=== PATIENT | male | born 1945 | race Caucasian/White ===

== ENCOUNTER → 2019-04-04 | Outpatient (CLI) | payer MEDICARE, OTHER ==
[~2019-04-04] MED LIST: ASPIRIN325 MG PO; ATENOLOL50 MG PO; DIOVAN HCT 3201 EACH PO
--- NOTE | 2019-04-04 20:52 | Diagnostic Imaging Report ---
MRI SPINE LUMBAR WO HISTORY: Low back, left leg pain COMPARISON: None. TECHNIQUE: Sagittal T1, sagittal T2, sagittal STIR, axial T2, coronal T2, and axial proton density weighted images of the lumbar spine were obtained without contrast. DISCUSSION: Number of non-rib bearing lumbar vertebral bodies: 5. Alignment: Slight straightening lordosis. Thoracolumbar levoscoliosis is centered at L2-L3. Vertebrae: No definite evidence for vertebral acute fractures, or neoplasm. Approximately 1.3 cm nodular T2 hyperintense lesion in the medial right iliac bone is indeterminate. Conus medullaris: Normal, ends at L1. Cauda equina: There is cauda equina crowding at L3-L4. Otherwise, no masses or arachnoiditis. Posterior paraspinal muscles: Well preserved. Mild right paraspinal muscle edema at L2-L3. Soft tissues: A inferior right renal cyst measures up to 13 cm in craniocaudal dimension. A few additional smaller T2 hyperintense cysts are seen in the upper right kidney. Moderate multilevel disc degeneration is most prominent at L5-S1. Nonspecific mild multilevel inflammatory endplate changes are most prominent on the right at L2-L3. Associated multilevel small Schmorl's nodes are present. T12-L1: Disc bulge without significant canal or foraminal stenosis. L1-L2: Disc bulge without significant canal or foraminal stenosis. L2-L3: Mild canal stenosis due to disc bulge and ligamentum flavum thickening. Both lateral recesses are slightly effaced, right greater than left. Mild right foraminal stenosis due to disc bulge and facet arthrosis. No significant left foraminal stenosis. L3-L4: Severe canal stenosis due to disc bulge and ligamentum flavum thickening. Both lateral recesses are effaced. Moderate right and mild left foraminal stenoses due to disc bulge and facet arthrosis. L4-L5: Moderate canal stenosis due to disc bulge and ligamentum flavum thickening. Both lateral recesses are effaced. Mild to moderate right and severe left foraminal stenoses due to disc bulge and facet arthrosis. L5-S1: Grade 1 anterolisthesis of L5 on S1 with chronic bilateral L5 pars defects. Mild canal stenosis due to uncovered disc bulge and ligamentum flavum thickening. Moderate to severe right and severe left foraminal stenoses due to uncovered disc bulge and facet arthrosis. IMPRESSION: 1. Moderate multilevel disc degeneration, most prominent at L5-S1, with thoracolumbar levoscoliosis centered at L2-L3. Nonspecific mild multilevel inflammatory endplate changes, most prominent on the right at L2-L3. 2. Grade 1 anterolisthesis of L5 on S1 with chronic bilateral L5 pars defects. 3. Multilevel degenerative canal stenoses - severe at L4-L5 (with cauda equina crowding) and moderate at L4-L5. 4. Multilevel degenerative foraminal stenoses - moderate on the right at L3-L4; severe on the left at L4-L5; moderate to severe right and severe left at L5-S1. 5. Indeterminate 1.3 cm T2 hyperintense lesion in the medial right iliac bone. 6. Multiple right renal cysts, measuring up to 13 cm in size. Signed by: Dr. Willy Pisano M.D. on 04/04/2019 8:49 PM
== END ==
LOC: MRI 12:38
PROVIDERS: ATTEND Internal Medicine
DX: M54.16 Radiculopathy, lumbar region (principal)
CPT/HCPCS: 72148

== ENCOUNTER 2019-04-29 12:49 | Outpatient (RCR) | payer MEDICARE, OTHER | END 2019-05-11 | LOC: PT 12:49 | PROVIDERS: ATTEND Neurological Surgery | DX: M51.16 Intervertebral disc disorders with radiculopathy, lumbar region (principal) ==

== ENCOUNTER 2020-09-03 08:18 | Inpatient (IN) | payer MEDICARE, OTHER ==
[~2020-09-03] VITALS: Ht 177.8 cm; Wt 90.7 kg
[2020-09-03] VITALS (8 sets, daily range): BP systolic 152–191; BP diastolic 89–92
--- NOTE | 2020-09-03 08:41 | Emergency Department Note ---
History of Present Illnes History of Present Illness Chief Complaint: Chest Pain History of Present Illness This is a 75 year old male arrived to the ED after he was called by [employer] heart monitor company for irregular rhythm. Patient denies any complaints. . Chief Complaint Comment PATIENT IN FROM HOME; STATES HAS BEEN WEARING A HEART MONITOR AFTER AN ABNORMAL EKG AND THE MONITORING COMPLNY CALLED AND TOLD HIM TO COME TO THE ER BECAUSE HE HAD A "CARDIAC EVENT" AT 0715. PATIENT ALERT AND ORIENTED, RESP EVEN AND NONLABORED, PATIENT DENIES PAIN, SHORTNESS OF BREATH, OR ANY OTHER COMPLAINTS Historian: Patient, Family Member Arrival Mode: Car Onset (how long ago): day(s) Severity: mild Timing of current episode: intermittent Progression: unchanged Chronicity: new Relieving factors: none Exacerbating factors: none Past Medical/Family History Physician Review I have reviewed the patient's past medical and family history. Any updates have been documented here. Past Medical History Recent Fever: No Clinical Suspicion of Infectio: No New/Unexplained Change in Ment: No Past Medical History: Hypertension, Cancer Other Medical History: SKIN CANCER TO FACE-REMOVED 2017 PROSTATE CANCER - REMISSION Past Surgical History: Cholecysctectomy Other Last Tetanus: NO Review of Systems Review of Systems Constitutional: Reports no symptoms EENTM: Reports no symptoms Cardiovascular: Reports as per HPI Respiratory: Reports no symptoms Gastrointestinal: Reports no symptoms Genitourinary: Reports no symptoms Musculoskeletal: Reports no symptoms Integumentary: Reports no symptoms Neurological: Reports no symptoms Psychological: Reports no symptoms Endocrine: Reports no symptoms Hematological/Lymphatic: Reports no symptoms Physical Exam Related Data Allergies: Coded Allergies: tetanus immune globulin (Verified Allergy, Unknown, 09/03/20) Triage Vital Signs Vital Signs Date Time Temp Pulse Resp B/P (MAP) Pulse Ox O2 Delivery O2 Flow Rate FiO2 09/03/20 08:21 97.9 92 18 205/115 98 Room Air Vital signs reviewed: Yes Physical Exam CONSTITUTIONAL Constitutional: Present well-developed, Present well-nourished HENT HENT: Present normocephalic, Present atraumatic, Present oropharynx clear/mo ist, Present nose normal HENT L/R: Present left ext ear normal, Present right ext ear normal EYES Eyes: Reports PERRL, Reports conjunctivae normal NECK Neck: Present ROM normal PULMONARY Pulmonary: Present effort normal, Present breath sounds normal CARDIOVASCULAR Cardiovascular: Present regular rhythm, Present heart sounds normal, Present capillary refill normal, Present normal rate GASTROINTESTINAL Abdominal: Present soft, Present nontender, Present bowel sounds normal GENITOURINARY Genitourinary: Present exam deferred SKIN Skin: Present warm, Present dry MUSCULOSKELETAL Musculoskeletal: Present ROM normal NEUROLOGICAL Neurological: Present alert, Present oriented x 3, Present no gross motor or sensory deficits PSYCHOLOGICAL Psychological: Present mood/affect normal, Present judgement normal Results Laboratory Lab results reviewed: Yes Procedures 12 Lead ECG Interpretation ECG Interpretation : ECG: ECG 1 Is Analyst: Interpreted by ED physician Prior ECG tracings: reviewed Rate: normal QRS axis: left Conduction: left bundle branch block ST segments normal: Yes T waves normal: Yes Clinical Impression: abnormal ECG Assessment & Plan Medical Decision Making MDM 75-year-old male arrives to the ED after he received a call of irregular rhythms in his heart monitor. Case discussed Dr. Pro who recommended hospital admission to telemetry to unit for pacemaker placement. Patient placed on pacer pads and admitted. Assessment & Plan Final Impression: (1) Dysrhythmia Depart Disposition: ADMITTED Last Vital Signs Date Time Temp Pulse Resp B/P (MAP) Pulse Ox O2 Delivery O2 Flow Rate FiO2 09/03/20 08:21 97.9 92 18 205/115 98 Room Air Home Meds Reported Medications Aspirin (ASPIRIN) 325 Mg Tablet, 325 MG PO DAILY, TAB 04/20/15 Valsartan/Hydrochlorothiazide (DIOVAN HCT 320-25 MG TABLET) 1 Each Tablet, 1 TAB PO DAILY 04/20/15 Atenolol (ATENOLOL) 50 Mg Tablet, 50 MG PO DAILY 04/20/15 RICARDO NEVAREZ DO Sep 03, 2020 08:41
[2020-09-03 08:44] LABS: BASOPHILS % 0.6 % (0.0-1.0); EOSINOPHILS # (AUTO) 0.2 (0.0-0.4); EOSINOPHILS % 2.6 % (0.0-6.0); HEMATOCRIT 52.6 % (38.2-49.6); HEMOGLOBIN 17.1 g/dL (14.0-18.0); LYMPHOCYTES # (AUTO) 0.7 (1.0-3.2); LYMPHOCYTES % 11.6 % (18.0-39.1); MEAN CORPUSCULAR HGB CONC 32.5 g/dL (31-35); MEAN CORPUSCULAR VOLUME 95.3 fL (81-99); MONOCYTES # (AUTO) 0.7 (0.2-0.8); MONOCYTES % 11.8 % (4.4-11.3); NEUTROPHILS # (AUTO) 4.5 (2.1-6.9); NEUTROPHILS % 73.1 % (38.7-80.0); PLATELET COUNT 254 x10e3/uL (140-360); RED BLOOD COUNT 5.52 x10e6/uL (4.3-5.7); RED CELL DISTRIBUTION WIDTH 13.7 % (11.7-14.4)
[2020-09-03 09:07] LABS: ALBUMIN/GLOBULIN RATIO 1.1 (0.8-2.0); CALCIUM 9.3 mg/dL (8.4-10.2); CREATININE, SERUM 1.48 mg/dL (0.72-1.25)
--- NOTE | 2020-09-03 09:12 | NUR ---
Pts spouse reports that pt snores extremely loud and stops breathing in his sleep everynight. Pt report called to [facility] on Med-Surg 2.
[2020-09-03 09:13] LABS: CREATINE KINASE MB 3.6 ng/mL (0-5.0)
--- NOTE | 2020-09-03 09:38 | NUR ---
Called Med-surg 2 and spoke to Christine to notify primary RN that pt needs to remain NPO d/t cardiac cath that will occur later today.
--- NOTE | 2020-09-03 09:38 | Diagnostic Imaging Report ---
X-ray chest AP History: Irregular rhythm Comparison: None Findings: Central airways unremarkable. Heart size normal. Aorta unremarkable. Other mediastinal contours unremarkable to the extent seen. No pleural effusion. No pneumothorax. No definite focal lung disease or lung nodules. Skeletal structures are remarkable for degenerative changes. Upper abdomen unremarkable. Extrathoracic soft tissues unremarkable. Impression: No acute cardiopulmonary disease. Signed by: Fermín Jensen MD on 09/03/2020 9:35 AM
--- NOTE | 2020-09-03 09:40 | NUR ---
patient arrived to unit via stretcher. denies concerns. no pain. telemetry in place. wctm.
[2020-09-03] MEDS ORDERED: NON-FORMULARY MEDICATION (Valsartan/Hydrochlorothiazide (Diovan Hct 320-25 Mg Tablet) 1 TA PO SCH (10:15)
[2020-09-03] MEDS: ASPIRIN 325 MG TAB PO SCH (10:45)
[2020-09-03] MEDS: HYDROCHLOROTHIAZIDE 25 MG TAB PO SCH (11:00)
[2020-09-03] MEDS: VALSARTAN 160 MG TAB PO SCH (11:00)
--- NOTE | 2020-09-03 11:00 | History and Physical ---
PRIMARY CARE PHYSICIAN: Dr. Hallie Hanson. GLAZE MAKER: Dr. Palacios CHIEF COMPLAINT: Abnormal event monitor with cardiac arrhythmia. HISTORY OF PRESENT ILLNESS: The patient is a 75-year-old male with hypertension. Apparently, he has some abnormal EKG previously and he saw Dr. Pro and event monitor was placed, monitoring for the past 10 days per patient and this morning, he was told by the company that monitoring him that he has some sort of cardiac arrhythmia event that he need to go to the emergency room. The patient subsequently went to emergency room. He denied of any significant symptoms. No chest pain. No shortness of breath. The patient now on telemetry floor. I could not find the patient's EKG in the chart. The patient is on monitor now. The EKG back in April showed possible atrial abnormality. There is no new EKG at this time. The patient is stable and lying in bed. He has a telemetry on. Laboratory workup in the emergency room otherwise unremarkable other than his creatinine was 1.48. Potassium was 4. The patient's chest x-ray was unremarkable. The patient is stable at this time. PAST MEDICAL HISTORY: 1. Hypertension. 2. History of remission prostate cancer. 3. Skin cancer, removed. PAST SURGICAL HISTORY: Cholecystectomy. SOCIAL HISTORY: The patient does not smoke or use alcohol. No regular drugs. ALLERGIES: TETANUS AND IMMUNE GLOBULIN. HOME MEDICATIONS: 1. Aspirin. 2. Atenolol. 3. Losartan/HCTZ. PHYSICAL EXAMINATION: VITAL SIGNS: Temperature is 98, blood pressure 171/91, pulse rate 65, respirations 20. GENERAL: The patient is not in acute distress. He is awake. HEENT: Normocephalic and atraumatic and anicteric. NECK: Supple grossly. PULMONARY: Clear. CARDIOVASCULAR: S1 and S2, regular rate and rhythm. ABDOMEN: Soft and unremarkable. EXTREMITIES: No cyanosis or edema. NEUROLOGIC: No gross focal deficit. LABORATORY DATA: WBC is 6.2, hemoglobin 17, hematocrit 52.6, platelets 254. Chemistry: Sodium 143, potassium 4, chloride 106, bicarb 25, BUN is 24, creatinine 1.5, glucose is 106. Serology test is pending. IMPRESSION: 1. Cardiac arrhythmia, type not known at this time, awaiting for his cap inspector, Dr. Pro, to discuss with the patient on the finding of the monitor. 2. Baseline hypertension. PLAN: 1. Consult Dr. Pro. 2. A 12-lead EKG. Telemetry. Resume home medication. Check magnesium and thyroid function test. MD JACQUIE De La Cruz/ENMANUEL /[id number]
[2020-09-03 11:07] LABS: THYROID STIMULATING HORMONE 0.766 uIU/mL (0.350-4.940)
--- NOTE | 2020-09-03 13:00 | NUR ---
patient leaving unit for pacemaker insertion.
[2020-09-03] MEDS ORDERED: LIDOCAINE HCL 2% LOCAL 20 ML VIAL ONE (13:49)
[2020-09-03] MEDS ORDERED: FENTANYL CITRATE/PF 100MCG/2 ML INJ ONE ×2 (13:49→15:20)
[2020-09-03] MEDS ORDERED: MIDAZOLAM HCL 2 MG/2 ML VIAL ONE ×3 (13:49→15:05)
[2020-09-03] MEDS ORDERED: VANCOMYCIN 1GM/NS 250 ML 500 ML ONE (13:49)
[2020-09-03] MEDS ORDERED: IOPAMIDOL 300MG/ML 50ML INFUS..BTL IV ONE (13:50)
[2020-09-03] MEDS ORDERED: SODIUM CHLORIDE 0.9% 500ML 500 ML ONE (13:50)
[2020-09-03] MEDS ORDERED: SODIUM CHLORIDE 0.9% 1000ML 2,000 ML ONE (13:50)
--- NOTE | 2020-09-03 16:00 | NUR ---
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 denies pain, vitals stable. bulk dressing to left chest, sling in place. at bedside. tm.
[2020-09-03 17:37] LABS: CREATINE KINASE MB 3.3 ng/mL (0-5.0)
[2020-09-03] MEDS ORDERED: TRAMADOL HCL 50 MG TAB PO PRN (18:00)
--- NOTE | 2020-09-03 19:25 | NUR ---
BEDSIDE SHIFT REPORT RECEIVED. PATIENT IS RESTING IN BED, AAOX3. RESP EVEN AND UNLABORED. NO ACUTE DISTRESS NOTED AT THIS TIME. S/P PACEMAKER REPLACEMENT. LEFT CHEST DRESSING NOTED, DRY AND INTACT. ARM IN SLING NOTED. EDUCATED PT ABOUT FALL PRECAUTIONS. PT VERBALIZED UNDERSTANDING. BED IS LOW AND LOCKED. SIDE RAILS X2. CALL LIGHT WITH IN EASY REACH. BED ALARM IS ON. ALL SAFETY MEASURES IN PLACE. PT DENIES NEEDS AT THIS TIME.
[2020-09-03] MEDS: MINOCYCLINE HCL 50 MG CAP PO SCH (20:43)
[2020-09-03] MEDS ORDERED: ATENOLOL 50 MG TAB PO SCH (21:00)
[2020-09-03] MEDS: HYDROCODONE/APAP 10MG-325MG TAB PO PRN (22:30)
--- NOTE | 2020-09-03 22:39 | Consultation ---
DATE OF CONSULTATION: 09/03/2020 REASON FOR CONSULT: Complete heart block. HISTORY OF PRESENT ILLNESS: This is a 75-year-old gentleman with history of recurrent dizziness and near-syncope, who underwent an event monitor by Dr. Pro and found to have episodes of complete heart block with episodes of block for about more than 6 seconds. The patient's states sometimes he stops breathing while sleeping, this time was sleeping, however, he continues to have episodes of dizziness that correlated with intermittent complete heart block. The patient was admitted for the recommendations in consider pacemaker. REVIEW OF SYSTEMS: CONSTITUTIONAL: Negative. CARDIOVASCULAR: As per HPI. RESPIRATORY: Negative. GASTROINTESTINAL: Negative. GENITOURINARY: Negative. MUSCULOSKELETAL: Negative. EYES: Negative. ENT: Negative. ALLERGY/IMMUNOLOGY: Negative. PSYCHIATRIC: Negative. PAST MEDICAL HISTORY: Hypertension. SURGICAL HISTORY: Denies. FAMILY HISTORY: No premature coronary artery disease. SOCIAL HISTORY: Denies alcohol, smoking. PHYSICAL EXAMINATION: VITAL SIGNS: Blood pressure 180/60, pulse 60, respirations 20, O2 sats 98%. GENERAL: In no acute distress. HEENT: Moist mucous membranes. CARDIOVASCULAR: Regular. RESPIRATORY: Clear. ABDOMEN: Soft and nontender. MUSCULOSKELETAL: 2+ distal pulses. NEUROLOGICAL: No focal deficit. SKIN: No lesions. PSYCHIATRIC: Normal thought processes. EKG, sinus rhythm, episodes of complete heart block. IMPRESSION: 1. Intermittent complete heart block. 2. Dizziness and near syncope. 3. No reversible causes. PLAN: I had a discussion with the patient, indication for pacing, benefits, and risks. He voices understanding and wishes to proceed. Plan for a dual-chamber pacemaker. MD DYANA Wellington/MODL /[id number]
--- NOTE | 2020-09-03 22:54 | Operative Report ---
DATE OF PROCEDURE: 09/03/2020 SURGEON: Pito Gilliam MD PREPROCEDURE DIAGNOSES: 1. Complete heart block. 2. Dizziness, near syncope. POSTPROCEDURE DIAGNOSES: 1. Complete heart block. 2. Dizziness, near syncope. ESTIMATED BLOOD LOSS: 10 mL. COMPLICATIONS: None. PROCEDURES PERFORMED: 1. Dual-chamber pacemaker placement. 2. Moderate sedation. Moderate conscious sedation was provided under my direct supervision by a sedation trained nurse. Sedation approximate time 30 minutes, Versed and fentanyl. There were no complications. See sedation form for details. DESCRIPTION OF PROCEDURE: After informed consent was obtained, the patient was brought to the electrophysiology laboratory in a fasting and nonsedated state. Area over his chest was prepped and draped in usual sterile fashion. Moderate sedation and prophylactic antibiotics were given. 1% lidocaine was used as local anesthetic and a 3 cm skin incision was made in the left subclavicular area. Electrocautery sharp and blunt dissection were used to bridge the muscular fascia and a pocket was created for event implantation device. Vascular access was obtained x2 in the left axillary vein using modified Seldinger technique under fluoroscopic guidance. Two sheaths were placed. Ventricular lead to the RV apex, R-wave 18, pacing threshold 0.6. RA lead, P-wave 5, pacing threshold 0.7. Sheaths were removed from the body. Leads were secured to fascia using Ethibond. Pocket was irrigated with antibiotic solution using the pulse barrel dedenting machine operator. Hemostasis was meticulous. Leads connected to the device and entire pacemaker system placed in the pocket. Incision was closed using absorbable sutures and Dermabond. The patient tolerated the procedure well. Procedure was incomplete. SUMMARY OF HARDWARE IMPLANTED: 1. The new pacemaker is [employer], serial #[id number]. 2. RV lead is [employer], #[id number]. 3. RA lead is [employer], #[id number]. IMPRESSION: Successful dual-chamber pacemaker implant via left axillary vein. PLAN: 1. Routine postop monitoring on telemetry bed. 2. Chest x-ray. 3. Follow up in 2 weeks. Pito Gilliam MD [facility]/MODL /[id number]
[2020-09-04 00:11] LABS: HEMATOCRIT 44.7 % (38.2-49.6); HEMOGLOBIN 14.7 g/dL (14.0-18.0); LYMPHOCYTES % 9.2 % (18.0-39.1); MEAN CORPUSCULAR HEMOGLOBIN 31.7 pg (28-32); MEAN CORPUSCULAR HGB CONC 32.9 g/dL (31-35); MEAN CORPUSCULAR VOLUME 96.5 fL (81-99); MONOCYTES % 14.5 % (4.4-11.3); NEUTROPHILS % 73.7 % (38.7-80.0); PLATELET COUNT 233 x10e3/uL (140-360); RED BLOOD COUNT 4.63 x10e6/uL (4.3-5.7)
[2020-09-04 00:12] LABS: BASOPHILS % 0.3 % (0.0-1.0); EOSINOPHILS # (AUTO) 0.1 (0.0-0.4); LYMPHOCYTES # (AUTO) 0.6 (1.0-3.2); NEUTROPHILS # (AUTO) 5.1 (2.1-6.9)
[2020-09-04 00:24] LABS: ALBUMIN 3.3 g/dL (3.5-5.0); ALBUMIN/GLOBULIN RATIO 1.1 (0.8-2.0); ANION GAP 12.8 mmol/L (8-16); CALCIUM 8.4 mg/dL (8.4-10.2); CREATININE, SERUM 1.24 mg/dL (0.72-1.25); POTASSIUM 3.8 mmol/L (3.5-5.1)
[2020-09-04] MEDS: VALSARTAN 160 MG TAB PO SCH ×2 (00:25→09:42)
[2020-09-04 00:28] VITALS: BP 173/98
[2020-09-04 00:42] LABS: CREATINE KINASE MB 3.2 ng/mL (0-5.0)
--- NOTE | 2020-09-04 01:04 | Progress Note ---
DATE: 09/03/2020 Cardiology Consultation. REFERRING PHYSICIAN: Dr. Ravindra Rocha. CONSULTING PHYSICIAN: Dr. Xavier Palacios. REASON FOR CONSULTATION: Abnormal telemetry. HISTORY OF PRESENT ILLNESS: Mr. Castellanos is a 75-year-old clinic patient with history of hypertension, who as part of a workup for presyncopal spells and bradycardia was observed on telemetry to have episodes of third-degree AV block with more than 3 second ventricular pauses for which he was advised to immediately call 911 and go to the nearest ER. Mr. Castellanos had a recent stress test with preserved left ventricular systolic function and normal MPI. He denies any chest pain or shortness of breath, but has noted lightheadedness. Cardiac electrophysiology was consulted and assisted in urgent placement of a pacemaker, dual chamber. A 12 system review negative except for as noted above. ALLERGIES: IODINE, TETANUS IVIG. SOCIAL HISTORY: Former smoker. Occasional alcohol use. No drug use. FAMILY HISTORY: Remarkable for hypertension. PAST SURGICAL HISTORY: Remarkable for cholecystectomy. PHYSICAL EXAMINATION: VITAL SIGNS: Temperature 97.5, heart rate 92, blood pressure 160/92, respiratory rate 18, O2 saturation 96%. GENERAL: In no acute distress, alert. NECK: No JVD. No carotid bruits. CHEST: Clear to auscultation. CARDIOVASCULAR: Regular rate and rhythm. Normal S1, S2. No S3 or S4. ABDOMEN: Soft. Bowel sounds positive. EXTREMITIES: No edema. Pacemaker site covered with dressings. CARDIOVASCULAR MEDICATIONS: Reviewed. Aspirin 325 mg daily, valsartan 320 mg daily, and hydrochlorothiazide 25 mg daily. Telemetry reads from clinic as described above. Preserved ventricular systolic function on recent stress test and normal MPI on recent stress test. Sodium 143, potassium 4, chloride 106, bicarbonate 25, BUN 24, creatinine 1.4, glucose 106. White blood cell 6.1, hemoglobin 17, platelets 254,000. AST 17, ALT 12, alkaline phosphatase 84, total bilirubin 0.4. ASSESSMENT/PLAN: A 75-year-old man with history of hypertension, presents with third-degree AV block now status post pacemaker implantation. Workup for presyncopal episodes led to this diagnosis. Recommend pain control, minocycline antibiotic, monitor at bedside and interrogate the device in a.m. Anticipate discharge if no complications. MD VANNESSA Brock/ENMANUEL /[id number]
[2020-09-04] MEDS: HYDROCODONE/APAP 10MG-325MG TAB PO PRN ×2 (04:45→15:34)
[2020-09-04 05:16] VITALS: BP 176/89
[2020-09-04 08:19] VITALS: BP 158/90
[2020-09-04] MEDS: MINOCYCLINE HCL 50 MG CAP PO SCH (09:42)
[2020-09-04] MEDS: ASPIRIN 325 MG TAB PO SCH (09:42)
[2020-09-04] MEDS: HYDROCHLOROTHIAZIDE 25 MG TAB PO SCH (09:43)
[2020-09-04 10:24] VITALS: BP 158/90
[2020-09-04 12:09] VITALS: BP 167/98
--- NOTE | 2020-09-04 12:56 | Progress Note ---
DATE: 09/04/2020 Cardiology Progress Note SUBJECTIVE: No new complaints. Status post pacemaker implantation. No issues. Postop pain control is adequate. Having breakfast. OBJECTIVE: VITAL SIGNS: Temperature 98, heart rate 74, blood pressure 158/90, respiratory rate 18, and O2 saturation 94%. GENERAL: No acute distress. Alert. NECK: No JVD. CHEST: Clear to auscultation. CARDIOVASCULAR: Regular rate and rhythm. S1, S2. ABDOMEN: Soft. Bowel sounds positive. EXTREMITIES: No edema. CARDIOVASCULAR MEDICATIONS: Reviewed. Aspirin 325 mg daily, valsartan 320 mg daily, hydrochlorothiazide 25 mg daily, minocycline 100 mg every 12 hours, and tramadol 50 q.8 hours. STUDIES: Reviewed. Sodium 141, potassium 3.8, chloride 107, bicarbonate 25, BUN 23, creatinine 1.2, and glucose 95. White blood cells 6.9, hemoglobin 14.7, and platelets 233. AST 16, ALT 11, alkaline phosphatase 70, and total bilirubin 0.2. ASSESSMENT AND PLAN: 1. A 75-year-old man, status post dual-chamber pacemaker implant for third-degree AV block, hypertension. Recommend continue minocycline 100 q.12 hours for the following 7-10 days. Outpatient followup in 2 weeks with EP and 4-6 weeks with Cardiology. 2. Continue current antihypertensive regimen. 3. Pain control as needed, can do as an outpatient. 4. Tylenol No. 3 q.6 hours p.r.n. moderate pain for 5 days. 5. Pacemaker pocket site healing well. MD VANNESSA Brock/ENMANUEL /[id number]
[2020-09-04] MEDS ORDERED: VANCOMYCIN 1GM/NS 250 ML 250 ML IV SCH (13:15)
--- NOTE | 2020-09-04 14:19 | Diagnostic Imaging Report ---
EXAMINATION: CHEST SINGLE (PORTABLE) INDICATION: pacemaker placement COMPARISON: Chest x-ray on 09/03/2020. FINDINGS/IMPRESSION: The left-sided pacemaker is intact. No pneumothorax. No interval change in radiographic appearance of the lungs. Signed by: Sabrina Huizar MD on 09/04/2020 2:16 PM
[2020-09-04 16:00] VITALS: BP 160/100
--- NOTE | 2020-09-04 16:05 | NUR ---
Patient discharged home verbalized understanding of d/c instructions
== END 2020-09-04 16:11 | disposition home or self-care (01) | DRG 244 ==
LOC: ER 08:30 → ERHOLD 08:31 → MED/SURG2 09:50
PROVIDERS: ADMIT Internal Medicine; ATTEND Internal Medicine
PROC: 0JH606Z Insertion of Pacemaker, Dual Chamber into Chest Subcutaneous Tissue and Fascia, Open Approach (ICD-10-PCS; principal; 2020-09-03)
PROC: 02H63JZ Insertion of Pacemaker Lead into Right Atrium, Percutaneous Approach (ICD-10-PCS; 2020-09-03)
PROC: 02HK3JZ Insertion of Pacemaker Lead into Right Ventricle, Percutaneous Approach (ICD-10-PCS; 2020-09-03)
DX: I44.2 Atrioventricular block, complete (principal); I10 Essential (primary) hypertension; Z11.59 Encounter for screening for other viral diseases; Z87.891 Personal history of nicotine dependence; Z85.46 Personal history of malignant neoplasm of prostate; Z85.828 Personal history of other malignant neoplasm of skin
CPT/HCPCS: 33208; 36415; 71045; 80053; 82550; 82553; 83735; 84443; 84484; 85025; 93005; 99152; 99153; 99284; J2001; J2250; J3010; J3370; J7030; J7040